=== PATIENT | male | born 1960 | race Caucasian/White ===

== ENCOUNTER 2017-11-04 08:28 | Day surgery (SDC) | payer BC, OTHER ==
[2017-11-04] MEDS ORDERED: MIDAZOLAM HCL 2MG/2ML VIAL IV ONE (08:29)
[2017-11-04] MEDS ORDERED: FENTANYL PF 100MCG/2ML VIAL IV ONE (08:29)
[2017-11-04] MEDS ORDERED: LIDOCAINE 2% MDV (20MG/ML) 20ML VIAL IV ONE (08:29)
[2017-11-04] MEDS ORDERED: PROPOFOL 10 MG/ML VIAL IV ONE (08:29)
--- NOTE | 2017-11-07 09:40 | Operative Note ---
DATE OF SURGERY: 11/04/2017 SURGEON: Param Irwin MD OPERATION: 1. ESOPHAGOGASTRODUODENOSCOPY. 2. COLONOSCOPY. 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 POSTOPERATIVE DIAGNOSES: 1. Normal esophagus with no specific strictures or any lesions. Biopsies were obtained. 2. Mild gastritis. 3. Normal duodenum. 4. Normal colon to the terminal ileum with no neoplasm or ulcerative lesions. ANESTHESIA: Sedation is per Anesthesia. Pulse oximetry was monitored throughout the procedures to maintain O2 saturation of 90% or greater. Supplemental oxygen was administered via nasal cannula. Cardiac and vital signs were monitored throughout the duration of the procedures, and they were stable. The procedures of esophagogastroduodenoscopy and colonoscopy and risks and benefits of the procedures, including the risk of bleeding and perforation, among others, were explained to the patient who voiced understanding and agreed to have the procedures done. Physical examination was performed, and the patient was found stable for sedation. PROCEDURE: The patient was placed in the left lateral position. Sedation was initiated. A plastic bite block was inserted into the oral cavity. The Olympus [id number] gastroscope was introduced into the oral cavity and advanced to the proximal esophagus without difficulty. The esophageal mucosa was carefully examined upon introduction of the gastroscope. The proximal and mid and distal esophageal mucosa appeared normal. The gastroscope was then advanced into the stomach, and surveillance of the stomach revealed normal gastric fundus with mild erythema along the gastric body and antrum but no ulcers were noted. The gastroscope was then advanced to the descending duodenum without difficulty. The duodenal bulb and descending duodenum appeared normal. The gastroscope was then withdrawn into the stomach and surveillance of the stomach revealed mild erythema with no ulcerations noted. The gastroscope was then withdrawn while carefully examining the gastric and esophageal mucosa. No other lesions noted. Multiple duodenal, gastric, and mid esophageal biopsies were obtained. The patient remained with stable vital signs and was repositioned for colonoscopy. A digital rectal exam was performed and showed some mild external hemorrhoids with no palpable rectal masses. An Olympus PCF-180AL colonoscope was then inserted into the rectum under direct visualization. It was advanced to the cecum without difficulty. The ileocecal valve and appendiceal orifice were identified and photographed. The colonic mucosa was carefully examined upon introduction of the colonoscope. There were no lesions noted. The ileocecal valve was intubated and terminal ileal mucosa was inspected for about 10 cm and it appeared normal. The colonoscope was then withdrawn while carefully examining the colonic mucosal surfaces. No lesions were noted. In the rectum, retroflexion was performed and grade 1 internal hemorrhoids were noted. The colonoscope was then withdrawn and the procedures was terminated. The patient tolerated the procedures well without any immediate complications. He remained with stable vital signs and was transferred to the recovery room. RECOMMENDATIONS: 1. The patient should be on a high-fiber diet. 2. We will follow up on the biopsies. 3. The patient is to have a repeat colonoscopy in 10 years. Thank you for allowing me to participate in the care of your patient. CC: MD JERMAIN Allred
== END 2017-11-04 10:22 | disposition home or self-care (01) ==
LOC: HOP 08:28
PROVIDERS: ATTEND Internal Medicine Gastroenterology
DX: Z12.11 Encounter for screening for malignant neoplasm of colon (principal); K22.4 Dyskinesia of esophagus; K64.0 First degree hemorrhoids
CPT/HCPCS: 00813; 43235; G0121